=== PATIENT | male | born 1970 | race African-American/Black ===

== ENCOUNTER 2021-08-02 10:13 | Emergency (ER) | payer OTHER ==
[2021-08-02 10:25] VITALS: BP 120/71; PULSE 85; TEMP 97.8; BMI 30.2
[2021-08-02] MEDS ORDERED: IBUPROFEN 600 MG TABLET (FP) PO ONE ×2 (10:50→10:53)
== END 2021-08-02 11:31 | disposition home or self-care (01) ==
LOC: JERFT 10:13 → JER 10:13 → JERFT 11:31
DX: M25.562 Pain in left knee (principal)
CPT/HCPCS: 73562-TC-LT-FY; 99283-25